=== PATIENT | female | born 1965 | race Caucasian/White ===

== ENCOUNTER 2020-05-18 14:57 | Outpatient (REF) | payer OTHER, SELFPAY ==
--- NOTE | 2020-05-18 16:49 | MHC.AU.HAS ---
Hearing Aid Evaluation Date of Visit: 05/18/20 Historical Information: Description of Hearing: Mild to moderate sensorineural hearing loss in the left ear. Normal hearing in the right ear. Summary: Ms. Cochran was seen at [facility] on 03/18/20, at which time she was diagnosed with hearing loss in the left ear and a monaural hearing aid for the left ear only was recommended by Dr. Demarco. She has never used a hearing aid before. Discussed options. She is interested in a rechargeable LINDSAY style hearing aid. Hearing Aid Prescription: Based on the individual?s shared listening needs, communication environments, dexterity, desire for connectivity, and personal preferences, the following prescription for amplification has been made: Left ear: Left ear prescription to be same as Right Hearing Aid above: Pricing Coordinator: [employer] Model: [employer] Alaris P70-R Battery Size: Rechargeable Color: P1- Sand beige Quality Control Chemist: Size 1 M Type of Dome: Open Plan of Care: Patient wishes to purchase hearing aids as prescribed Action Taken/Action Needed: Hearing aid ordered today. Primary Diagnosis: H90.3 Bilateral Sensorineural Hearing Loss Signature: Provider: Marizol Marrufo, CCC-A
== END 2020-05-18 14:58 | disposition home or self-care (01) ==
LOC: HO.HAP 14:57
PROVIDERS: PCP Internal Medicine; Visit Provider Otolaryngology
DX: H90.3 Sensorineural hearing loss, bilateral (principal)
CPT/HCPCS: 92590

== ENCOUNTER 2020-05-28 12:25 | Outpatient (REF) | payer OTHER, SELFPAY | END 2020-05-28 12:26 | disposition home or self-care (01) | LOC: HO.HAP 12:25 | PROVIDERS: Visit Provider Otolaryngology | DX: Z46.1 Encounter for fitting and adjustment of hearing aid (principal); H90.3 Sensorineural hearing loss, bilateral | CPT/HCPCS: V5011; V5020; V5241; V5257 ==

== ENCOUNTER 2020-06-16 15:08 | Outpatient (REF) | payer OTHER, SELFPAY | END 2020-06-16 15:09 | disposition home or self-care (01) | LOC: HO.HAP 15:08 | PROVIDERS: Visit Provider Internal Medicine | DX: Z13.89 Encounter for screening for other disorder (principal) ==

== ENCOUNTER → 2022-07-06 10:43 | Outpatient (BNVA) | payer OTHER, SELFPAY | PROVIDERS: PCP Student in an Organized Health Care Education/Training Program; Visit Provider Physician Assistant Surgical ==

== ENCOUNTER → 2022-07-31 14:51 | Outpatient (BNVA) | payer OTHER, SELFPAY | PROVIDERS: PCP Student in an Organized Health Care Education/Training Program; Visit Provider Physician Assistant Surgical | DX: E66.01 Morbid (severe) obesity due to excess calories (principal); I10 Essential (primary) hypertension; M19.90 Unspecified osteoarthritis, unspecified site; Z98.84 Bariatric surgery status; Z68.41 Body mass index [BMI] 40.0-44.9, adult | CPT/HCPCS: 99212 ==